=== PATIENT | male | born 1985 | race Caucasian/White ===

== ENCOUNTER → 2024-08-30 15:55 | Outpatient (REF) | payer OTHER, SELFPAY | LOC: CLAB 15:55 | PROVIDERS: ATTENDING PHYSICIAN Surgery | DX: K64.4 Residual hemorrhoidal skin tags (principal) | CPT/HCPCS: 88304 ==

== ENCOUNTER → 2024-11-18 06:53 | Outpatient (REF) | payer OTHER, SELFPAY | LOC: HWRAD 06:53 | PROVIDERS: ATTENDING PHYSICIAN Internal Medicine; FAMILY PHYSICIAN Physician Assistant | DX: R10.30 Lower abdominal pain, unspecified (principal) | CPT/HCPCS: 76882 ==